=== PATIENT | male | born 2000 | race Caucasian/White ===

== ENCOUNTER 2022-08-14 15:27 | Emergency (ER) | payer OTHER ==
[~2022-08-14] VITALS: Ht 182.9 cm; Wt 108.1 kg
[2022-08-14 15:33] VITALS: BP 123/68
--- NOTE | 2022-08-14 15:35 | NUR ---
22YO MALE PT C/O L ANKLE PAIN XYESTERDAY. SHARP PAIN ON BEARING WEIGHT OR MOVEMENT. REPORTS "LANDING ON ANKLE WRONG" AFTER JUMPING OFF BACK OF TRUCK. ANKLE PRESENTS BRUISED W/ MILD SWELLING. DENIES TAKING MEDICATION. +NUMBING -LOSS OF SENSATION. PT AAOX4, NO VISIBLE DISTRESS. WHEELCHAIR ASSISTED TO ROOM HX:DENIES NKA
--- NOTE | 2022-08-14 15:37 | NUR ---
PT W/C ASSISTED TO BED 6.
--- NOTE | 2022-08-14 15:41 | NUR ---
PT TAKEN TO XRAY VIA WHEELCHAIR
--- NOTE | 2022-08-14 15:50 | NUR ---
PT BROUGHT BACK VIA WHEELCHAIR
[2022-08-14] MEDS ORDERED: IBUP-2218 PO (16:16)
[2022-08-14 17:15] VITALS: BP 130/78
--- NOTE | 2022-08-14 17:15 | NUR ---
Patient discharged with v/s stable. Written and verbal after care instructions FOR ANKLE DONIS given and explained. Patient alert, oriented and verbalized understanding of instructions. Ambulatory with steady gait. All questions addressed prior to discharge. ID band removed. Patient advised to follow up with PMD. Rx of IBUPROFEN given. Opportunity to ask questions provided and answered.
--- NOTE | 2022-08-14 17:16 | NUR ---
The patient's care was reviewed and supervised by Farnaz Cook RN.
== END 2022-08-14 17:15 | disposition home or self-care (01) ==
LOC: MED 15:27
DX: S93.402A Sprain of unspecified ligament of left ankle, initial encounter (principal); S90.32XA Contusion of left foot, initial encounter; Z79.899 Other long term (current) drug therapy; W19.XXXA Unspecified fall, initial encounter; Y93.89 Activity, other specified; Y92.89 Other specified places as the place of occurrence of the external cause; Y99.0 Civilian activity done for income or pay
CPT/HCPCS: 73610; 73630; 99284